=== PATIENT | female | born 1955 | race Caucasian/White ===

== ENCOUNTER 2020-04-08 22:30 | Emergency (ER) | payer BC ==
[~2020-04-08] VITALS: Ht 165.1 cm; Wt 63.5 kg
[2020-04-08 22:30] VITALS: BP_SYST 151
--- NOTE | 2020-04-08 22:33 | NUR ---
Received patient to ER w/ c/o intermittent cp ongoing x1 week but worse today. patient states that she feels "tired". SB on stunner w/ no changes on stunner. Introduced self to patient, positioned for comfort and safety w/ bed to low position sr up, continue to monitor.
--- NOTE | 2020-04-08 22:33 | NUR ---
Placed in room 3 . Placed on cardiac nurse specialist, blood pressure machine and pulse oximeter. To gown for exam. Side rails up. Report given to Robert WATT.
[2020-04-08] MEDS ORDERED: ASPIRIN 325 MG TABLET PO ONE (23:45)
[2020-04-08] MEDS ORDERED: NITROGLYCERIN 0.4 MG TAB.SUBL SL ONE (23:45)
[2020-04-09 00:10] LABS: BASOPHILS # (AUTO) 0.1 K/uL (0.0-0.2); EOSINOPHILS # (AUTO) 0.2 K/uL (0.0-0.4); EOSINOPHILS % (AUTO) 4.1 % (0.0-4.0); HEMATOCRIT 37.8 % (36-48); HEMOGLOBIN 12.8 g/dL (12.0-16.0); LYMPHOCYTES # (AUTO) 1.6 K/uL (1.0-5.5); LYMPHOCYTES % (AUTO) 29.7 % (20.5-51.5); MEAN CORPUSCULAR HEMOGLOBIN 31 pg (27-31); MEAN CORPUSCULAR HGB CONC 34 % (32-36); MEAN CORPUSCULAR VOLUME 90 fL (79.0-98.0); MONOCYTES # (AUTO) 0.5 K/uL (0.0-1.0); MONOCYTES % (AUTO) 9.9 % (1.7-9.3); NEUTROPHILS # (AUTO) 3.1 K/uL (1.8-7.7); NEUTROPHILS % (AUTO) 55.3 % (40.0-70.0); PLATELET COUNT (AUTO) 164 K/uL (130-430); RED BLOOD CELL COUNT(AUTO) 4.18 MIL/uL (4.2-6.2); RED CELL DISTRIBUTION WIDTH 14.4 % (9.0-15.0); WHITE BLOOD COUNT (AUTO) 5.5 K/uL (4.8-10.8)
[2020-04-09] MEDS ORDERED: NITROGLYCERIN 0.4 MG TAB.SUBL SL ONE (00:15)
[2020-04-09 00:25] LABS: CALCIUM 9.2 mg/dL (8.4-11.0); CREATININE 0.74 mg/dL (0.55-1.30); POTASSIUM 4.1 mmol/L (3.5-5.1)
[2020-04-09 00:35] LABS: ALBUMIN 3.9 g/dL (3.4-4.8); TOTAL BILIRUBIN 0.3 mg/dL (0.0-1.0)
--- NOTE | 2020-04-09 00:48 | NUR ---
Patient medicated as ordered with x1 nitro sl per MD order. Patient still c/o intermittent cp but will rate pain as 4/10. Positioned patient for comfort and safety, noted to be SB on autocad technician. Ambulated to restroom w/ no LEONG or increased cp. Continue to monitor level of comfort.
[2020-04-09 02:49] VITALS: BP_SYST 125
--- NOTE | 2020-04-09 02:50 | NUR ---
Patient given written and verbal discharge instructions and verbalizes understanding. ER MD discussed with patient the results and treatment provided. Patient in stable condition. ID arm band removed. IV catheter removed intact and dressing applied, no active bleeding. Rx of given. Patient educated on pain management and to follow up with PMD. Pain Scale . Opportunity for questions provided and answered. Medication side effect fact sheet provided.
== END 2020-04-09 03:12 | disposition home or self-care (01) ==
LOC: SED 22:30
DX: R07.89 Other chest pain (principal); Z88.0 Allergy status to penicillin
CPT/HCPCS: 36415; 71045; 80053; 82550-TC; 83880; 84484; 85025; 93005; 99285

== ENCOUNTER 2021-08-20 13:10 | Emergency (ER) | payer BC ==
[~2021-08-20] VITALS: Ht 165.1 cm; Wt 63.5 kg
[2021-08-20 14:02] VITALS: BP_SYST 122
--- NOTE | 2021-08-20 15:35 | NUR ---
Patient to ER bed 7 to gown for evaluation. Side rails up. Report given to TWYLA WATT.
--- NOTE | 2021-08-20 15:52 | NUR ---
lab at bedside
[2021-08-20 16:11] LABS: ANION GAP 7 (5-15); CALCIUM 9.6 mg/dL (8.4-11.0); CHLORIDE 103 mmol/L (98-107); CREATININE 0.82 mg/dL (0.55-1.30); GLUCOSE 98 mg/dL (70-99); POTASSIUM 4.2 mmol/L (3.5-5.1); SODIUM SERUM 139 mmol/L (136-145); UREA NITROGEN, BLOOD 19 mg/dL (8-21)
[2021-08-20 16:13] LABS: GFR AFRICAN AMERICAN 90 mL/min (>90)
[2021-08-20 16:14] LABS: BASOPHILS # (AUTO) 0.1 K/uL (0.0-0.2); EOSINOPHILS # (AUTO) 0.1 K/uL (0.0-0.4); EOSINOPHILS % (AUTO) 1.3 % (0.0-4.0); HEMATOCRIT 39.2 % (36-48); LYMPHOCYTES # (AUTO) 1.9 K/uL (1.0-5.5); LYMPHOCYTES % (AUTO) 30.2 % (20.5-51.5); MEAN CORPUSCULAR HEMOGLOBIN 30 pg (27-31); MEAN CORPUSCULAR HGB CONC 33 % (32-36); MEAN CORPUSCULAR VOLUME 91 fL (79.0-98.0); MONOCYTES # (AUTO) 0.5 K/uL (0.0-1.0); MONOCYTES % (AUTO) 7.7 % (1.7-9.3); NEUTROPHILS # (AUTO) 3.7 K/uL (1.8-7.7); NEUTROPHILS % (AUTO) 59.8 % (40.0-70.0); PLATELET COUNT (AUTO) 185 K/uL (130-430); RED BLOOD CELL COUNT(AUTO) 4.32 MIL/uL (4.2-6.2); RED CELL DISTRIBUTION WIDTH 14.6 % (9.0-15.0); WHITE BLOOD COUNT (AUTO) 6.2 K/uL (4.8-10.8)
[2021-08-20 16:17] LABS: ALANINE AMINOTRANSFERASE 34 U/L (12-78); ALBUMIN 3.9 g/dL (3.4-4.8); ASPARTATE AMINOTRANSFERASE 23 U/L (10-37)
[2021-08-20 16:18] LABS: TOTAL BILIRUBIN < 0.1 mg/dL (0.0-1.0)
[2021-08-20 16:33] LABS: C-REACTIVE PROTEIN QUANT < 0.2 mg/dL (0-0.5)
[2021-08-20 17:14] VITALS: BP_SYST 137
--- NOTE | 2021-08-20 17:15 | NUR ---
Patient given written and verbal discharge instructions and verbalizes understanding. [employer]IM[employer] vides MD discussed with patient the results and treatment provided. Patient in stable condition. ID arm band removed. Patient educated on pain management and to follow up with PMD. Pain Scale 0. Opportunity for questions provided and answered. Medication side effect fact sheet provided.
== END 2021-08-20 17:14 | disposition home or self-care (01) ==
LOC: SED 13:10
DX: J02.9 Acute pharyngitis, unspecified (principal); Z88.0 Allergy status to penicillin
CPT/HCPCS: 36415; 70360-TC; 80053; 83605; 85025; 86140; 99284